=== PATIENT | female | born 1990 | race Caucasian/White ===

== ENCOUNTER 2019-08-13 13:10 | Emergency (ER) | payer SELFPAY ==
[~2019-08-13] VITALS: Ht 154.9 cm; Wt 75.3 kg
[2019-08-13 13:14] VITALS: Ht 154.9 cm; Wt 75.3 kg
[2019-08-13 17:37] VITALS: BP 132/79
== END 2019-08-13 17:37 | disposition home or self-care (01) ==
LOC: ED 13:10
DX: S61.214A Laceration without foreign body of right ring finger without damage to nail, initial encounter (principal); W45.8XXA Other foreign body or object entering through skin, initial encounter; Y93.89 Activity, other specified; Y92.89 Other specified places as the place of occurrence of the external cause; Y99.8 Other external cause status
CPT/HCPCS: 90715; J2001